=== PATIENT | female | born 1935 | race Caucasian/White ===

== ENCOUNTER 2022-01-24 02:47 | Observation (INO) | payer OTHER ==
[2022-01-24 03:06] VITALS: BMI 15.9
[2022-01-24 04:40] LABS: BASO % 1.3 % (0-2.0); EOS % 0.9 % (0-4.5); HEMATOCRIT 30.1 % (32.4-45.2); HEMOGLOBIN 10.3 GM/dL (10.7-15.3); LYMPH % 15.8 % (8-40); MCH 30.7 pg (25.7-33.7); MCHC 34.2 g/dl (32.0-36.0); MEAN CELL VOLUME 89.8 fl (80-96); MEAN PLT VOLUME 7.7 fl (7.5-11.1); MONO % 7.1 % (3.8-10.2); NEUT % 74.9 % (42.8-82.8); PLATELET COUNT 244 10^3/uL (134-434); RBC 3.35 M/mm3 (3.60-5.2); RDW 16.3 % (11.6-15.6); WHITE BLOOD COUNT 5.7 K/mm3 (4.0-10.0)
[2022-01-24 05:00] LABS: CALCIUM 8.8 mg/dL (8.5-10.1)
[2022-01-24 05:01] LABS: ALBUMIN 2.9 g/dl (3.4-5.0); BLOOD UREA NITROGEN 14.6 mg/dL (7-18)
[2022-01-24 05:04] LABS: CREATININE 0.6 mg/dL (0.55-1.3)
[2022-01-24 05:05] LABS: BILIRUBIN,TOTAL 0.3 mg/dL (0.2-1); TOT PROT 5.5 g/dl (6.4-8.2)
[2022-01-24] MEDS ORDERED: POLYETHYLENE GLYCOL (HEALTHYLAX) 3350 17 GM PACKET PO PRN (06:33)
[2022-01-24] MEDS ORDERED: ACETAMINOPHEN 325 MG TABLET (FP) PO PRN (06:33)
[2022-01-24] MEDS ORDERED: DIPHTH,PERTUSS(ACELL),TET 0.5 ML DISP.SYRIN IM ONE ×2 (06:42→06:48)
[2022-01-24 10:54] LABS: EPI CELLS 13 /uL (0-25.1); HYALINE CASTS 1 /uL (0-3.1); URINE APPEARANCE CLEAR; URINE BACTERIA 756 /uL (0-1359); URINE BILIRUBIN NEGATIVE (NEGATIVE); URINE COLOR YELLOW; URINE GLUCOSE (UA) NEGATIVE (NEGATIVE); URINE KETONE NEGATIVE (NEGATIVE); URINE LEUK ESTERASE TRACE (NEGATIVE); URINE NITRITE NEGATIVE (NEGATIVE); URINE PROTEIN NEGATIVE (NEGATIVE); URINE RBC 8 /uL (0-23.9); URINE UROBILINOGEN 0.2 mg/dL (0.2-1.0); URINE WBC 45 /uL (0-25.8)
[2022-01-24 11:10] LABS: BASO % 1.2 % (0-2.0); EOS % 0.4 % (0-4.5); HEMATOCRIT 30.8 % (32.4-45.2); HEMOGLOBIN 10.4 GM/dL (10.7-15.3); LYMPH % 14.6 % (8-40); MCH 30.5 pg (25.7-33.7); MCHC 33.9 g/dl (32.0-36.0); MEAN CELL VOLUME 89.7 fl (80-96); MEAN PLT VOLUME 7.6 fl (7.5-11.1); MONO % 6.2 % (3.8-10.2); NEUT % 77.6 % (42.8-82.8); PLATELET COUNT 265 10^3/uL (134-434); RBC 3.43 M/mm3 (3.60-5.2); RDW 16.6 % (11.6-15.6); WHITE BLOOD COUNT 6.8 K/mm3 (4.0-10.0)
[2022-01-24 12:37] LABS: INR 1.02 (0.83-1.09); PROTHROMBIN TIME (PATIENT) 11.7 SEC (9.7-13.0)
[2022-01-24 12:39] LABS: ACTIVATED PTT 31.5 SECONDS (25.2-36.5)
[2022-01-25 07:38] LABS: BASO % 1.3 % (0-2.0); EOS % 0.8 % (0-4.5); HEMATOCRIT 25.1 % (32.4-45.2); HEMOGLOBIN 8.7 GM/dL (10.7-15.3); LYMPH % 17.3 % (8-40); MCH 30.8 pg (25.7-33.7); MCHC 34.7 g/dl (32.0-36.0); MEAN CELL VOLUME 88.9 fl (80-96); MEAN PLT VOLUME 7.9 fl (7.5-11.1); MONO % 8.6 % (3.8-10.2); PLATELET COUNT 233 10^3/uL (134-434); RBC 2.83 M/mm3 (3.60-5.2); RDW 16.3 % (11.6-15.6); WHITE BLOOD COUNT 5.7 K/mm3 (4.0-10.0)
[2022-01-25 07:48] LABS: BLOOD UREA NITROGEN 22.8 mg/dL (7-18); CALCIUM 8.6 mg/dL (8.5-10.1)
[2022-01-25 07:51] LABS: CREATININE 0.6 mg/dL (0.55-1.3)
[2022-01-25] MEDS ORDERED: IRON SUCROSE INJECTION 200 MG in SODIUM CHLORIDE 90 ML IVPB ONE (10:00)
[2022-01-25] MEDS ORDERED: levETIRAcetam 500 MG TABLET (FP) PO SCH (10:00)
[2022-01-25] MEDS ORDERED: TIOTROPIUM BROMIDE 2.5 MCG (SPIRIVA) RESPIMAT INHALER IH SCH (10:00)
[2022-01-25] MEDS ORDERED: NICOTINE 14 MG/24 HOURS TOPICAL PATCH TD SCH (10:00)
[2022-01-25 11:38] VITALS: BP 102/56; PULSE 88; TEMP 97.8
[2022-01-25] MEDS ORDERED: MIRTAZAPINE 15 MG TABLET (FP) PO SCH (22:00)
== END 2022-01-25 13:56 ==
LOC: JER 02:47 → JERBED 05:36 → UNDOADMOB 05:36 → INTOOBSV 05:36 → JERBED 06:33 → J4W 15:43
PROVIDERS: ADMIT Hospitalist; ATTEND Family Medicine
PROC: 3E0234Z Introduction of Serum, Toxoid and Vaccine into Muscle, Percutaneous Approach (ICD-10-PCS; principal; 2022-01-24)
PROC: 3E033GC Introduction of Other Therapeutic Substance into Peripheral Vein, Percutaneous Approach (ICD-10-PCS; 2022-01-24)
PROC: 08QNXZZ Repair Right Upper Eyelid, External Approach (ICD-10-PCS; 2022-01-24)
DX: S01.111A Laceration without foreign body of right eyelid and periocular area, initial encounter (principal); I10 Essential (primary) hypertension; E78.00 Pure hypercholesterolemia, unspecified; Z87.891 Personal history of nicotine dependence; W18.39XA Other fall on same level, initial encounter; Y93.89 Activity, other specified; Y92.092 Bedroom in other non-institutional residence as the place of occurrence of the external cause; J44.9 Chronic obstructive pulmonary disease, unspecified; G93.89 Other specified disorders of brain; D64.9 Anemia, unspecified; R29.6 Repeated falls; N20.0 Calculus of kidney; Z23 Encounter for immunization; E78.5 Hyperlipidemia, unspecified; K92.2 Gastrointestinal hemorrhage, unspecified
CPT/HCPCS: 12011-25; 36415; 70450-TC; 71045-TC-FY; 72125-TC; 72170-TC-FY; 73521-TC-FY; 80048; 80053; 81003; 82607; 82728; 83540; 83550; 84484; 85025; 85610; 85730; 86850; 86900; 86901; 87086; 87186; 90471; 90715; 93005; 93010; 93306-TC; 96365; 97116-GP; 97162-GP; 99285-25; C9803-CS; G0378; J1756; U0003; U0005

== ENCOUNTER 2023-09-21 15:27 | Observation (INO) | payer OTHER ==
[2023-09-21 17:11] VITALS: BMI 21.2
[2023-09-21 17:43] LABS: BASO % 0.6 % (0-2.0); EOS % 1.4 % (0-4.5); HEMATOCRIT 39.4 % (32.4-45.2); HEMOGLOBIN 12.8 GM/dL (10.7-15.3); LYMPH % 10.4 % (8-40); MCH 28.8 pg (25.7-33.7); MCHC 32.5 g/dl (32.0-36.0); MEAN CELL VOLUME 88.6 fl (80-96); MEAN PLT VOLUME 7.2 fl (7.5-11.1); MONO % 5.5 % (3.8-10.2); NEUT % 82.1 % (42.8-82.8); PLATELET COUNT 298 10^3/uL (134-434); RBC 4.44 M/mm3 (3.60-5.2); RDW 13.9 % (11.6-15.6)
[2023-09-21 18:01] LABS: POTASSIUM 4.9 mmol/L (3.5-5.1)
[2023-09-21 18:04] LABS: CALCIUM 9.7 mg/dL (8.5-10.1)
[2023-09-21 18:05] LABS: ALBUMIN 3.6 g/dl (3.4-5.0); BLOOD UREA NITROGEN 23.9 mg/dL (7-18)
[2023-09-21 18:08] LABS: CREATININE 0.7 mg/dL (0.55-1.3)
[2023-09-21 18:10] LABS: BILIRUBIN,TOTAL 0.2 mg/dL (0.2-1); TOT PROT 6.8 g/dl (6.4-8.2)
[2023-09-21] MEDS ORDERED: DEXAMETHASONE SOD PHOSPHATE 20 MG/5 ML VIAL IVPB ONE (19:22)
[2023-09-21] MEDS ORDERED: DEXAMETHASONE SOD PHOSPHATE 10 MG/1 ML VIAL ONE (19:34)
[2023-09-21] MEDS ORDERED: ALBUTEROL SO4 2.5/IPRATROPIUM 0.5 INH SOL 3 ML VIAL.NEB. NEB PRN (22:38)
[2023-09-21] MEDS ORDERED: REMDESIVIR 200 MG in SODIUM CHLORIDE 250 ML IVPB ONE (23:30)
[2023-09-21] MEDS ORDERED: MAGNESIUM HYDROX 2400MG/30ML ORAL SUSPENSION 30 ML CUP PO SCH (23:45)
[2023-09-21] MEDS ORDERED: POLYETHYLENE GLYCOL (HEALTHYLAX) 3350 17 GM PACKET PO PRN (23:54)
[2023-09-21] MEDS ORDERED: MIRTAZAPINE 15 MG TABLET (FP) PO ONE (23:55)
[2023-09-22 03:40] LABS: EPI CELLS 9 /uL (0-25.1); HYALINE CASTS 0 /uL (0-3.1); PH,URINE 5.5 (5.0-8.0); URINE APPEARANCE CLEAR; URINE BACTERIA 138 /uL (0-1359); URINE BILIRUBIN NEGATIVE (NEGATIVE); URINE COLOR YELLOW; URINE GLUCOSE (UA) NEGATIVE (NEGATIVE); URINE KETONE NEGATIVE (NEGATIVE); URINE LEUK ESTERASE 1+ (NEGATIVE); URINE NITRITE NEGATIVE (NEGATIVE); URINE PROTEIN NEGATIVE (NEGATIVE); URINE UROBILINOGEN 0.2 mg/dL (0.2-1.0); URINE WBC 17 /uL (0-25.8)
[2023-09-22 08:20] LABS: POTASSIUM 4.6 mmol/L (3.5-5.1)
[2023-09-22 08:24] LABS: HEMATOCRIT 38.2 % (32.4-45.2); MCH 30.6 pg (25.7-33.7); MCHC 34.2 g/dl (32.0-36.0); MEAN CELL VOLUME 89.5 fl (80-96); MEAN PLT VOLUME 8.2 fl (7.5-11.1); PLATELET COUNT 259 10^3/uL (134-434); RBC 4.27 M/mm3 (3.60-5.2); WHITE BLOOD COUNT 8.4 K/mm3 (4.0-10.0)
[2023-09-22 08:30] LABS: CALCIUM 9.7 mg/dL (8.5-10.1)
[2023-09-22 08:31] LABS: ALBUMIN 3.6 g/dl (3.4-5.0); BLOOD UREA NITROGEN 22.6 mg/dL (7-18); MAGNESIUM 2.2 mg/dL (1.8-2.4)
[2023-09-22 08:33] LABS: CREATININE 0.7 mg/dL (0.55-1.3); PHOSPHOROUS 3.7 mg/dL (2.5-4.9)
[2023-09-22 08:35] LABS: BILIRUBIN,TOTAL 0.2 mg/dL (0.2-1)
[2023-09-22] MEDS ORDERED: PATIENT'S OWN MEDICATION (NON-FORMULARY) (Menthol/Zinc Oxide [Calmoseptine Ointment] 71 GM TP SCH (10:00)
[2023-09-22] MEDS ORDERED: DEXAMETHASONE SOD PHOSPHATE 4 MG/1 ML VIAL IVPUSH SCH (10:00)
[2023-09-22] MEDS ORDERED: PATIENT'S OWN MEDICATION (NON-FORMULARY) (Cran/Vitc/Mannose/Fos/Bromeln [Uti-Stat Liquid] PO SCH (10:00)
[2023-09-22] MEDS ORDERED: DEXAMETHASONE SOD PHOSPHATE 10 MG/1 ML VIAL ONE (10:49)
[2023-09-22] MEDS ORDERED: levETIRAcetam 500 MG TABLET (FP) PO ONE (10:49)
[2023-09-22] MEDS: levETIRAcetam 500 MG TABLET (FP) PO SCH (10:58)
[2023-09-22] MEDS: CHOLECALCIFEROL (VIT D3) 1,000 UNIT (25 MCG) TABLET PO SCH (10:58)
[2023-09-22] MEDS: ZINC SULFATE 220 MG CAPSULE (FP) PO SCH (10:58)
[2023-09-22] MEDS ORDERED: CEFTRIAXONE 1,000 MG in DEXTROSE 5%-WATER - 50 ML IVPB SCH (11:15)
[2023-09-22] MEDS ORDERED: CEFTRIAXONE 1 GM/50 ML BAG ONE (11:24)
[2023-09-22] MEDS ORDERED: MIRTAZAPINE 15 MG TABLET (FP) ONE (22:43)
[2023-09-22] MEDS: SENNOSIDES 8.6MG TABLET (FP) PO SCH (22:58)
[2023-09-22] MEDS: MIRTAZAPINE 15 MG TABLET (FP) PO SCH (22:58)
[2023-09-22] MEDS ORDERED: REMDESIVIR 100 MG in SODIUM CHLORIDE 250 ML IVPB SCH (23:00)
[2023-09-23 06:43] LABS: BASO % 0.6 % (0-2.0); EOS % 0.1 % (0-4.5); HEMATOCRIT 38.4 % (32.4-45.2); HEMOGLOBIN 13.1 GM/dL (10.7-15.3); LYMPH % 11.4 % (8-40); MCH 30.2 pg (25.7-33.7); MEAN CELL VOLUME 88.6 fl (80-96); MEAN PLT VOLUME 8.2 fl (7.5-11.1); NEUT % 81.9 % (42.8-82.8); PLATELET COUNT 295 10^3/uL (134-434); RBC 4.33 M/mm3 (3.60-5.2); RDW 14.1 % (11.6-15.6)
[2023-09-23 07:00] LABS: POTASSIUM 4.5 mmol/L (3.5-5.1)
[2023-09-23 07:06] LABS: CALCIUM 9.4 mg/dL (8.5-10.1)
[2023-09-23 07:07] LABS: ALBUMIN 3.6 g/dl (3.4-5.0); BLOOD UREA NITROGEN 27.4 mg/dL (7-18)
[2023-09-23 07:10] LABS: CREATININE 0.7 mg/dL (0.55-1.3)
[2023-09-23 08:34] LABS: BILIRUBIN,TOTAL 0.4 mg/dL (0.2-1)
[2023-09-23] MEDS ORDERED: CEFTRIAXONE 1 GM/50 ML BAG ONE (10:37)
[2023-09-23] MEDS: UMECLIDINIUM/VILANTEROL (ANORO) 62.5/25 MCG INHALER IH SCH (12:00)
[2023-09-23] MEDS: CHOLECALCIFEROL (VIT D3) 1,000 UNIT (25 MCG) TABLET PO SCH (12:35)
[2023-09-23] MEDS: ZINC SULFATE 220 MG CAPSULE (FP) PO SCH (12:35)
[2023-09-23] MEDS: levETIRAcetam 500 MG TABLET (FP) PO SCH (12:35)
[2023-09-23] MEDS: NICOTINE 7 MG/24 HOURS TOPICAL PATCH TD SCH (12:35)
[2023-09-23] MEDS: CEFTRIAXONE 1 GM in DEXTROSE 5%-WATER - 50 ML IVPB SCH (12:35)
[2023-09-24] MEDS: SENNOSIDES 8.6MG TABLET (FP) PO SCH ×2 (03:38→21:50)
[2023-09-24] MEDS: MIRTAZAPINE 15 MG TABLET (FP) PO SCH (03:39)
[2023-09-24] MEDS ORDERED: CEFTRIAXONE 1 GM/50 ML BAG ONE (08:24)
[2023-09-24 09:07] LABS: BASO % 0.9 % (0-2.0); EOS % 1.6 % (0-4.5); HEMATOCRIT 42.2 % (32.4-45.2); HEMOGLOBIN 13.9 GM/dL (10.7-15.3); LYMPH % 17.4 % (8-40); MCH 29.5 pg (25.7-33.7); MCHC 32.9 g/dl (32.0-36.0); MEAN CELL VOLUME 89.6 fl (80-96); MEAN PLT VOLUME 7.7 fl (7.5-11.1); MONO % 7.5 % (3.8-10.2); NEUT % 72.6 % (42.8-82.8); PLATELET COUNT 306 10^3/uL (134-434); RBC 4.72 M/mm3 (3.60-5.2); RDW 13.8 % (11.6-15.6); WHITE BLOOD COUNT 14.6 K/mm3 (4.0-10.0)
[2023-09-24] MEDS: ZINC SULFATE 220 MG CAPSULE (FP) PO SCH (09:18)
[2023-09-24] MEDS: CEFTRIAXONE 1 GM in DEXTROSE 5%-WATER - 50 ML IVPB SCH (09:18)
[2023-09-24] MEDS: levETIRAcetam 500 MG TABLET (FP) PO SCH (09:18)
[2023-09-24] MEDS: CHOLECALCIFEROL (VIT D3) 1,000 UNIT (25 MCG) TABLET PO SCH (09:18)
[2023-09-24] MEDS: UMECLIDINIUM/VILANTEROL (ANORO) 62.5/25 MCG INHALER IH SCH (09:19)
[2023-09-24 09:56] LABS: ALBUMIN 3.9 g/dl (3.4-5.0)
[2023-09-24 09:57] LABS: BLOOD UREA NITROGEN 26.6 mg/dL (7-18)
[2023-09-24 09:58] LABS: CALCIUM 9.6 mg/dL (8.5-10.1)
[2023-09-24 10:01] LABS: BILIRUBIN,TOTAL 0.4 mg/dL (0.2-1); CREATININE 0.6 mg/dL (0.55-1.3)
[2023-09-24] MEDS: NICOTINE 7 MG/24 HOURS TOPICAL PATCH TD SCH (10:03)
[2023-09-24] MEDS ORDERED: MIRTAZAPINE 15 MG TABLET (FP) ONE (21:18)
[2023-09-24] MEDS ORDERED: OLANZapine 2.5 MG TABLET PO SCH (22:00)
[2023-09-24] MEDS ORDERED: MIRTAZAPINE 15 MG TABLET (FP) PO SCH (22:00)
[2023-09-25] MEDS ORDERED: hydrOXYzine PAMOATE 25 MG CAPSULE (FP) PO ONE (01:31)
[2023-09-25] MEDS ORDERED: hydrOXYzine HCL 100 MG/2 ML VIAL IM ONE (01:49)
[2023-09-25] MEDS ORDERED: hydrOXYzine HCL 50 MG/ML VIAL IM ONE (01:54)
[2023-09-25] MEDS ORDERED: MIRTAZAPINE 30 MG TABLET PO SCH (06:42)
[2023-09-25 09:27] VITALS: RESP 18
[2023-09-25] MEDS ORDERED: NICOTINE 7 MG/24 HOURS TOPICAL PATCH TD ONE (12:32)
[2023-09-25] MEDS: levETIRAcetam 500 MG TABLET (FP) PO SCH (12:46)
[2023-09-25] MEDS: NICOTINE 7 MG/24 HOURS TOPICAL PATCH TD SCH (12:46)
[2023-09-25] MEDS: ZINC SULFATE 220 MG CAPSULE (FP) PO SCH (12:46)
[2023-09-25] MEDS: CHOLECALCIFEROL (VIT D3) 1,000 UNIT (25 MCG) TABLET PO SCH (12:47)
[2023-09-25] MEDS: UMECLIDINIUM/VILANTEROL (ANORO) 62.5/25 MCG INHALER IH SCH (13:28)
[2023-09-25 14:22] LABS: BASO % 0.6 % (0-2.0); EOS % 0.8 % (0-4.5); HEMATOCRIT 42.4 % (32.4-45.2); HEMOGLOBIN 13.8 GM/dL (10.7-15.3); LYMPH % 10.7 % (8-40); MCHC 32.5 g/dl (32.0-36.0); MEAN CELL VOLUME 89.3 fl (80-96); MEAN PLT VOLUME 7.3 fl (7.5-11.1); NEUT % 80.9 % (42.8-82.8); PLATELET COUNT 289 10^3/uL (134-434); RBC 4.75 M/mm3 (3.60-5.2); RDW 14.3 % (11.6-15.6); WHITE BLOOD COUNT 13.2 K/mm3 (4.0-10.0)
[2023-09-25 17:37] VITALS: BP 100/63; PULSE 73; TEMP 97.6
== END 2023-09-25 23:12 | disposition home or self-care (01) ==
LOC: JER 15:27 → JERBED 18:40
PROVIDERS: ADMIT Internal Medicine; ATTEND Internal Medicine
PROC: 3E03329 Introduction of Other Anti-infective into Peripheral Vein, Percutaneous Approach (ICD-10-PCS; principal; 2023-09-21)
PROC: 3E033GC Introduction of Other Therapeutic Substance into Peripheral Vein, Percutaneous Approach (ICD-10-PCS; 2023-09-21)
PROC: 3E023NZ Introduction of Analgesics, Hypnotics, Sedatives into Muscle, Percutaneous Approach (ICD-10-PCS; 2023-09-21)
PROC: 3E023GC Introduction of Other Therapeutic Substance into Muscle, Percutaneous Approach (ICD-10-PCS; 2023-09-21)
DX: U07.1 COVID-19 (principal); R07.9 Chest pain, unspecified; K27.9 Peptic ulcer, site unspecified, unspecified as acute or chronic, without hemorrhage or perforation; F17.210 Nicotine dependence, cigarettes, uncomplicated; N39.0 Urinary tract infection, site not specified; D64.9 Anemia, unspecified; G93.89 Other specified disorders of brain; D72.829 Elevated white blood cell count, unspecified; J44.9 Chronic obstructive pulmonary disease, unspecified; N20.0 Calculus of kidney; E78.5 Hyperlipidemia, unspecified; F03.90 Unspecified dementia, unspecified severity, without behavioral disturbance, psychotic disturbance, mood disturbance, and anxiety; G40.909 Epilepsy, unspecified, not intractable, without status epilepticus
CPT/HCPCS: 0241U-QW; 36415; 71045-TC-FY; 80053; 81003; 83735; 84100; 84484; 85025; 85027; 86140; 87086; 93005; 93010; 96365; 96366; 96367; 96372; 96375; 96376; 99285-25; G0378; J0248